=== PATIENT | male | born 1960 | race Caucasian/White ===

== ENCOUNTER 2020-01-01 00:22 | Emergency (ER) | payer MEDICARE, OTHER ==
[2020-01-01 00:30] VITALS: RESP 18
[2020-01-01] MEDS ORDERED: SODIUM CHLORIDE 0.9% 1,000 ML IV STA (00:41)
[2020-01-01] MEDS ORDERED: KETOROLAC 15 MG/ML 1 ML VIAL IVP STA (00:41)
[2020-01-01] MEDS ORDERED: HYDROmorphone 1 MG/ML 1 ML SYRINGE IVP STA (00:41)
[2020-01-01] MEDS ORDERED: ONDANSETRON 4 MG/2 ML VIAL IVP STA (00:41)
--- NOTE | 2020-01-01 00:46 | ED ---
Abdominal Pain HPI - General Chief Complaint: Abdominal Pain Stated Complaint: Back, shoulder pain Time Seen by Provider: 01/01/20 00:24 Source: patient Mode of arrival: EMS Limitations: no limitations - History of Present Illness Initial Comments: 59-year-old male patient presents to the emergency department today for evaluation of right flank pain. Patient states he has had pain for the last few hours. States the pain is severe and sharp. States he is feeling somewhat nauseous but denies any vomiting. Reports normal bowel movements. Denies any hematuria, dysuria, urinary frequency, urinary urgency. Denies previous abdominal surgeries. Denies any fever or chills. Patient denies any recent rash, cough, shortness of breath, chest pain, numbness, tingling, dizziness, weakness, hematuria, dysuria, urinary urgency, urinary frequency, headache, visual changes, or any other complaints. - Related Data Home Medications Medication Instructions Recorded Confirmed [place]-3 Acid Ethyl Esters [Lovaza] 2 gm PO BID 11/19/13 05/27/15 Oxymorphone HCl [Opana ER] 40 mg PO Q8H 11/19/13 05/27/15 amLODIPine BESYLATE [Norvasc] 5 mg PO DAILY 11/19/13 05/27/15 oxyCODONE-APAP 10-325MG [Percocet 1 tab PO HS 05/26/15 05/27/15 10-325 mg] Methylphenidate HCl [Ritalin] 20 mg PO TID 05/27/15 05/27/15 Previous Rx's Medication Instructions Recorded LORazepam [Ativan] 1 mg PO QID #30 tab 05/27/15 Metoprolol Succinate (ER) [Toprol 25 mg PO DAILY #30 tab 05/27/15 Xl] PARoxetine [Paxil] 10 mg PO DAILY #30 tab 05/27/15 Ibuprofen [Motrin] 600 mg PO Q8HR PRN #30 tab 01/01/20 Tamsulosin HCl [Flomax] 0.4 mg PO DAILY #7 cap 01/01/20 Allergies Allergy/AdvReac Type Severity Reaction Status Date / Time chlorpromazine HCl Allergy Unknown Verified 01/01/20 00:31 [From Thorazine] prochlorperazine edisylate Allergy Unknown Verified 01/01/20 00:31 [From Compazine] prochlorperazine maleate Allergy Unknown Verified 01/01/20 00:31 [From Compazine] promethazine Allergy Unknown Verified 01/01/20 00:31 Review of Systems ROS Statement: Those systems with pertinent positive or pertinent negative responses have been documented in the HPI. ROS Other: All systems not noted in ROS Statement are negative. Past Medical History Past Medical History: Hypertension Additional Past Medical History / Comment(s): back pain History of Any Multi-Drug Resistant Organisms: MRSA Date of last positivie culture/infection: 2003 MDRO Source:: unk Past Surgical History: Orthopedic Surgery Past Psychological History: Anxiety, Depression Past Alcohol Use History: None Reported Past Drug Use History: None Reported General Exam Limitations: no limitations General appearance: alert, in no apparent distress, other (This is a well- developed, well-nourished adult male patient in no acute distress. Vital signs upon presentation are temperature 98.2F, pulse 73, respirations 18, blood pressure 128/103, pulse ox 99% on room air.) Eye exam: Present: normal appearance, PERRL, EOMI. Absent: scleral icterus, conjunctival injection, periorbital swelling ENT exam: Present: normal exam, normal oropharynx, mucous membranes moist Respiratory exam: Present: normal lung sounds bilaterally. Absent: respiratory distress, wheezes, rales, rhonchi, stridor Cardiovascular Exam: Present: regular rate, normal rhythm, normal heart sounds. Absent: systolic murmur, diastolic murmur, rubs, gallop, clicks GI/Abdominal exam: Present: soft, tenderness (Right lower right upper quadrant tenderness), normal bowel sounds. Absent: distended, guarding, rebound, rigid Back exam: Present: normal inspection, CVA tenderness (R). Absent: CVA tenderness (L) Neurological exam: Present: alert, oriented X3, CN II-XII intact Psychiatric exam: Present: normal affect, normal mood Skin exam: Present: warm, dry, intact, normal color. Absent: rash Course Vital Signs 01/01/20 01/01/20 00:23 00:30 Temperature 98.0 F Pulse Rate 73 Respiratory 18 Rate Blood Pressure 128/103 157/94 O2 Sat by Pulse 99 Oximetry Medical Decision Making - Medical Decision Making 59-year-old male patient presents to the emergency department today for evaluation of right-sided flank pain right-sided abdominal pain. Physical examination did reveal right-sided abdominal tenderness and right CVA tenderness. He is afebrile. Labs reviewed and did reveal red blood cells in the urine. Did have elevated lactic at 2.1. There is no signs of infection in the urine. CT abdomen and pelvis was obtained and did reveal a 5 mm stone in the right occipital ureter with right-sided hydronephrosis. Patient was given IV fluids and pain medication. Upon reevaluation is resting comfortable in bed. He does wear a fentanyl patch at home. He'll be discharged with ibuprofen and Flomax. He is instructed to follow-up with the urologist for further evaluation as soon as possible. Return parameters were discussed in detail. He verbalizes understanding and agrees with this plan. - Lab Data Result diagrams: 01/01/20 00:42 01/01/20 00:42 Lab Results 01/01/20 01/01/20 01/01/20 Range/Units 00:42 00:42 00:42 WBC 12.9 H (3.8-10.6) k/uL RBC 4.96 (4.30-5.90) m/uL Hgb 14.3 (13.0-17.5) gm/dL Hct 43.6 (39.0-53.0) % MCV 88.1 (80.0-100.0) fL MCH 28.9 (25.0-35.0) pg MCHC 32.9 (31.0-37.0) g/dL RDW 13.1 (11.5-15.5) % Plt Count 305 (150-450) k/uL Neutrophils % 90 % Lymphocytes % 5 % Monocytes % 3 % Eosinophils % 1 % Basophils % 0 % Neutrophils # 11.6 H (1.3-7.7) k/uL Lymphocytes # 0.7 L (1.0-4.8) k/uL Monocytes # 0.4 (0-1.0) k/uL Eosinophils # 0.1 (0-0.7) k/uL Basophils # 0.0 (0-0.2) k/uL Sodium 138 (137-145) mmol/L Potassium 4.7 (3.5-5.1) mmol/L Chloride 103 (98-107) mmol/L Carbon Dioxide 23 (22-30) mmol/L Anion Gap 12 mmol/L BUN 16 (9-20) mg/dL Creatinine 1.00 (0.66-1.25) mg/dL Est GFR (CKD-EPI)AfAm >90 (>60 ml/min/1.73 sqM) Est GFR (CKD-EPI)NonAf 83 (>60 ml/min/1.73 sqM) Glucose 119 H (74-99) mg/dL Plasma Lactic Acid Chilo (0.7-2.0) mmol/L Calcium 9.9 (8.4-10.2) mg/dL Total Bilirubin 0.8 (0.2-1.3) mg/dL AST 36 (17-59) U/L ALT 16 (4-49) U/L Alkaline Phosphatase 75 (38-126) U/L Total Protein 7.7 (6.3-8.2) g/dL Albumin 4.6 (3.5-5.0) g/dL Amylase 49 (30-110) U/L Lipase 53 (23-300) U/L Urine Color Yellow Urine Appearance Clear (Clear) Urine pH 8.0 (5.0-8.0) Ur Specific [place] 1.005 (1.001-1.035) Urine Protein Negative (Negative) Urine Glucose (UA) Negative (Negative) Urine Ketones 1+ (Negative) Urine Blood Small H (Negative) Urine Nitrite Negative (Negative) Urine Bilirubin Negative (Negative) Urine Urobilinogen <2.0 (<2.0) mg/dL Ur Leukocyte Esterase Negative (Negative) Urine RBC 13 H (0-5) /hpf Urine WBC 1 (0-5) /hpf Urine Mucus Rare H (None) /hpf 01/01/20 Range/Units 00:42 WBC (3.8-10.6) k/uL RBC (4.30-5.90) m/uL Hgb (13.0-17.5) gm/dL Hct (39.0-53.0) % MCV (80.0-100.0) fL MCH (25.0-35.0) pg MCHC (31.0-37.0) g/dL RDW (11.5-15.5) % Plt Count (150-450) k/uL Neutrophils % % Lymphocytes % % Monocytes % % Eosinophils % % Basophils % % Neutrophils # (1.3-7.7) k/uL Lymphocytes # (1.0-4.8) k/uL Monocytes # (0-1.0) k/uL Eosinophils # (0-0.7) k/uL Basophils # (0-0.2) k/uL Sodium (137-145) mmol/L Potassium (3.5-5.1) mmol/L Chloride (98-107) mmol/L Carbon Dioxide (22-30) mmol/L Anion Gap mmol/L BUN (9-20) mg/dL Creatinine (0.66-1.25) mg/dL Est GFR (CKD-EPI)AfAm (>60 ml/min/1.73 sqM) Est GFR (CKD-EPI)NonAf (>60 ml/min/1.73 sqM) Glucose (74-99) mg/dL Plasma Lactic Acid [place] 2.1 H* (0.7-2.0) mmol/L Calcium (8.4-10.2) mg/dL Total Bilirubin (0.2-1.3) mg/dL AST (17-59) U/L ALT (4-49) U/L Alkaline Phosphatase (38-126) U/L Total Protein (6.3-8.2) g/dL Albumin (3.5-5.0) g/dL Amylase (30-110) U/L Lipase (23-300) U/L Urine Color Urine Appearance (Clear) Urine pH (5.0-8.0) Ur Specific [place] (1.001-1.035) Urine Protein (Negative) Urine Glucose (UA) (Negative) Urine Ketones (Negative) Urine Blood (Negative) Urine Nitrite (Negative) Urine Bilirubin (Negative) Urine Urobilinogen (<2.0) mg/dL Ur Leukocyte Esterase (Negative) Urine RBC (0-5) /hpf Urine WBC (0-5) /hpf Urine Mucus (None) /hpf - Radiology Data Radiology results: report reviewed, image reviewed CT abdomen and pelvis with out contrast was obtained. Report was reviewed in its entirety. Impression by Dr. Zamora shows obstructive calculus in the upper right ureter with hydronephrosis and proximal hydroureter. Bilateral small renal calculi. Normal appendix. Disposition Clinical Impression: Kidney stone on right side Disposition: HOME SELF-CARE Condition: Good Instructions (If sedation given, give patient instructions): Kidney Stones (ED) Additional Instructions: Increase fluids. Take medications as directed. Follow-up with urology for recheck in 1-2 days if necessary. Follow-up with your primary care physician for recheck in 1-2 days. Return to the emergency department immediately for any new, worsening, or concerning symptoms. Prescriptions: Tamsulosin HCl [Flomax] 0.4 mg PO DAILY #7 cap Ibuprofen [Motrin] 600 mg PO Q8HR PRN #30 tab PRN Reason: Pain Is patient prescribed a controlled substance at d/c from ED?: No Referrals: Andrés Givens DO [Primary Care Provider] - 1-2 days Rivas Blair MD [STAFF PHYSICIAN] - 1-2 days Time of Disposition: 01:49
[2020-01-01 00:52] LABS: Basophils % (A) 0 %; Eosinophils # (A) 0.1 k/uL (0-0.7); Eosinophils % (A) 1 %; HCT 43.6 % (39.0-53.0); HGB 14.3 gm/dL (13.0-17.5); Lymphocytes # (A) 0.7 k/uL (1.0-4.8); Lymphocytes % (A) 5 %; MCH 28.9 pg (25.0-35.0); MCHC 32.9 g/dL (31.0-37.0); MCV 88.1 fL (80.0-100.0); Mean Platelet Volume 7.6; Monocytes # (A) 0.4 k/uL (0-1.0); Monocytes % (A) 3 %; Neutrophils # (A) 11.6 k/uL (1.3-7.7); Neutrophils % (A) 90 %; Platelet Count 305 k/uL (150-450); RBC 4.96 m/uL (4.30-5.90); RDW 13.1 % (11.5-15.5); WBC 12.9 k/uL (3.8-10.6)
[2020-01-01 00:54] LABS: Color,Urine Yellow
[2020-01-01 00:55] LABS: Appearance,Urine Clear (Clear); Bilirubin,Urine Negative (Negative); Glucose,Urine (UA) Negative (Negative); Ketones,Urine 1+ (Negative); Protein,Urine Negative (Negative); Specific Gravity,Urine 1.005 (1.001-1.035)
[2020-01-01 00:56] LABS: Blood,Urine Small (Negative); Leukocyte Esterase,Urine Negative (Negative); Nitrite,Urine Negative (Negative); Urobilinogen,Urine <2.0 mg/dL (<2.0)
[2020-01-01 00:59] LABS: Mucus,Urine Rare /hpf; RBC,Urine 13 /hpf (0-5); WBC,Urine 1 /hpf (0-5)
[2020-01-01 01:01] LABS: African American GFR (CKD) >90 (>60 ml/min/1.73 sqM); Albumin 4.6 g/dL (3.5-5.0); Amylase 49 U/L (30-110); Anion Gap 12 mmol/L; Blood Urea Nitrogen 16 mg/dL (9-20); Calcium 9.9 mg/dL (8.4-10.2); Carbon Dioxide 23 mmol/L (22-30); Chloride 103 mmol/L (98-107); Glucose 119 mg/dL (74-99); Lipase 53 U/L (23-300); Non-African American GFR(CKD) 83 (>60 ml/min/1.73 sqM); Potassium 4.7 mmol/L (3.5-5.1); Sodium 138 mmol/L (137-145); Total Bilirubin 0.8 mg/dL (0.2-1.3); Total Protein 7.7 g/dL (6.3-8.2)
[2020-01-01 01:02] LABS: ALT 16 U/L (4-49); AST 36 U/L (17-59); Alkaline Phosphatase 75 U/L (38-126)
--- NOTE | 2020-01-01 01:32 | CT ---
EXAMINATION TYPE: CT abdomen pelvis wo con DATE OF EXAM: 01/01/2020 COMPARISON: None HISTORY: Right Flank Pain, R/O Stones CT DLP: 626.10 mGycm Automated exposure control for dose reduction was used. Images obtained from the diaphragm to the floor the pelvis with no contrast. There is mild subsegmental atelectasis at the lung bases. Heart size is normal. There is no pleural e ffusion. Liver spleen pancreas gallbladder stomach appear intact. Bile ducts are not dilated. There is no adre nal mass. Kidneys have normal size. There is right-sided hydronephrosis and hydroureter. There is 5 mm obstruct ing calculus in the proximal right ureter. This is at the L4-5 level. There is no retroperitoneal alexsandra nopathy. There is mild right-sided perinephric edema. There is 2 tiny calculi that measure 1 mm lower pole right kidney. There is 2 mm calculus upper pole left kidney. Bladder distends smoothly. There i s prostatic calcification. There is no inguinal hernia. There is no mesenteric edema. There is no ascites or free air. There is no bowel obstruction. Appendi x is medial and appears normal. Appendix best seen on coronal image 42. There is mild thoracolumbar levoscoliosis. There is no lumbar compression fracture. There is mild dis c space narrowing at L4-5. The bony pelvis is intact. The hip joints appear normal. IMPRESSION: Obstructing calculus in the upper right ureter with hydronephrosis and proximal hydroureter. Bilateral small renal calculi. Normal appendix.
[2020-01-01] MEDS ORDERED: TAMSULOSIN 0.4 MG CAP.ER.24H PO STA (01:35)
[2020-01-01 02:29] VITALS: BP 112/72; PULSE 76; TEMP 98.3
== END 2020-01-01 02:30 | disposition home or self-care (01) ==
LOC: EC 00:22
DX: N13.2 Hydronephrosis with renal and ureteral calculous obstruction (principal); F32.9 Major depressive disorder, single episode, unspecified; I10 Essential (primary) hypertension; Z79.899 Other long term (current) drug therapy; Z86.14 Personal history of Methicillin resistant Staphylococcus aureus infection; Z88.8 Allergy status to other drugs, medicaments and biological substances
CPT/HCPCS: 36415; 80053; 82150; 83605; 83690; 85025; 81001; 74176; 99284; 96374; 96375 ×2; 96361; J2405; J1170; J1885

== ENCOUNTER 2023-06-17 18:27 | Observation (INO) | payer MEDICARE, OTHER ==
[2023-06-17 19:14] LABS: Glucose,Whole Blood 90 mg/dL (70-110)
--- NOTE | 2023-06-17 19:14 | ED ---
General Adult HPI - General Chief complaint: Altered Mental Status Stated complaint: Overdose Time Seen by Provider: 06/17/23 18:30 Source: patient, EMS, RN notes reviewed, old records reviewed Mode of arrival: EMS Limitations: altered mental status - History of Present Illness Initial comments: This is a 62-year-old male who presents to the emergency department because he thinks the Narcan gave him adverse reaction. Patient states he has a fentanyl patch but denies any other opiate use. Patient states he took Narcan and then he started to feel terrible and he thinks the there is something wrong with the Narcan. Patient cannot tell us why he took the Narcan. Patient just states he does not feel good all over and he is not fully cooperative with answering questions. Patient denies any trauma. At this point in time he is twitching quite a bit and at times does not answer our questions and so we will do the workup and speak with him later - Related Data Home Medications Medication Instructions Recorded Confirmed [place]-3 Acid Ethyl Esters [Lovaza] 2 gm PO BID 11/19/13 05/27/15 Oxymorphone HCl [Opana ER] 40 mg PO Q8H 11/19/13 05/27/15 amLODIPine BESYLATE [Norvasc] 5 mg PO DAILY 11/19/13 05/27/15 oxyCODONE-APAP 10-325MG [Percocet 1 tab PO HS 05/26/15 05/27/15 10-325 mg] Methylphenidate HCl [Ritalin] 20 mg PO TID 05/27/15 05/27/15 Previous Rx's Medication Instructions Recorded LORazepam [Ativan] 1 mg PO QID #30 tab 05/27/15 Metoprolol Succinate (ER) [Toprol 25 mg PO DAILY #30 tab 05/27/15 Xl] PARoxetine [Paxil] 10 mg PO DAILY #30 tab 05/27/15 Ibuprofen [Motrin] 600 mg PO Q8HR PRN #30 tab 01/01/20 Tamsulosin HCl [Flomax] 0.4 mg PO DAILY #7 cap 01/01/20 Allergies Allergy/AdvReac Type Severity Reaction Status Date / Time chlorpromazine HCl Allergy Unknown Verified 01/01/20 00:31 [From Thorazine] prochlorperazine edisylate Allergy Unknown Verified 01/01/20 00:31 [From Compazine] prochlorperazine maleate Allergy Unknown Verified 01/01/20 00:31 [From Compazine] promethazine Allergy Unknown Verified 01/01/20 00:31 Review of Systems ROS Statement: Those systems with pertinent positive or pertinent negative responses have been documented in the HPI. ROS Other: All systems not noted in ROS Statement are negative. Past Medical History Past Medical History: Hypertension Additional Past Medical History / Comment(s): back pain History of Any Multi-Drug Resistant Organisms: MRSA Date of last positivie culture/infection: 2003 MDRO Source:: unk Past Surgical History: Orthopedic Surgery Past Psychological History: Anxiety, Depression Smoking Status: Former smoker Past Alcohol Use History: None Reported Past Drug Use History: None Reported General Exam - General Exam Comments Initial Comments: GENERAL: Patient is well-developed and well-nourished. Patient is nontoxic and well- hydrated and is in mild distress. Patient is acting as though he is withdrawing from opiates at this time ENT: Neck is soft and supple. No significant lymphadenopathy is noted. Oropharynx is clear. Moist mucous membranes. Neck has full range of motion without eliciting any pain. EYES: The sclera were anicteric and conjunctiva were pink and moist. Extraocular movements were intact and pupils were equal round and reactive to light. Eyelids were unremarkable. PULMONARY: Unlabored respirations. Good breath sounds bilaterally. No audible rales rhonchi or wheezing was noted. CARDIOVASCULAR: There is a regular rate and rhythm without any murmurs gallops or rubs. ABDOMEN: Soft and nontender with normal bowel sounds. SKIN: Skin is clear with no lesions or rashes and otherwise unremarkable. NEUROLOGIC: Patient is alert and oriented x 2. Cranial nerves II through XII are grossly intact. Motor and sensory are also intact. Normal speech, volume and content. Symmetrical smile. MUSCULOSKELETAL: Normal extremities with adequate strength and full range of motion. LYMPHATICS: No significant lymphadenopathy is noted PSYCHIATRIC: Unable to assess at this time Limitations: altered mental status Course Vital Signs 06/17/23 06/17/23 06/17/23 18:29 20:07 21:00 Temperature 98.5 F Pulse Rate 71 57 L 56 L Respiratory 18 18 18 Rate Blood Pressure 123/96 144/87 129/81 O2 Sat by Pulse 96 97 96 Oximetry Medical Decision Making - Medical Decision Making EKG is interpreted by myself. EKG shows a sinus rhythm at a rate of 66 bpm parable 162 QRS is 93 QT interval 375 QTc is 389. Patient is EKG shows no ST segment elevation or depression. Was pt. sent in by a medical professional or institution (JAMIN Pierre, CLINICAL RESEARCH PHYSICIAN, urgent care, hospital, or correction...) When possible be specific @ -No Did you speak to anyone other than the patient for history (EMS, parent, family, police, friend...)? What history was obtained from this source @ -EMS gave quite a bit of history because the patient was not cooperative initially Did you review nursing and triage notes (agree or disagree)? Why? @ -I reviewed and agree with nursing and triage notes Were old charts reviewed (outside hosp., previous admission, EMS record, old EKG, old radiological studies, urgent care reports/EKG's, correction records)? Report findings @ -I reviewed prior charts and prior lab work on this patient Differential Diagnosis (chest pain, altered mental status, abdominal pain women, abdominal pain men, vaginal bleeding, weakness, fever, dyspnea, syncope, headache, dizziness, GI bleed, back pain, seizure, CVA, palpatations, mental health, musculoskeletal)? @ -Differential Altered Mental Status: Hypoglycemia, DKA, hypercapnia, ETOH, overdose, CO poisoning, trauma, myxedema coma, HTN encephalopathy, infection, encephalitis, psychosis, intercranial hemorrhage, hepatic encephalopathy, meningitis, CVA, this is not meant to be an all-inclusive list EKG interpreted by me (3pts min.). @ -As above X-rays interpreted by me (1pt min.). @ -Chest x-ray shows no acute abnormality CT interpreted by me (1pt min.). @ -CT of the brain shows no acute abnormality U/S interpreted by me (1pt. min.). @ -None done What testing was considered but not performed or refused? (CT, X-rays, U/S, labs)? Why? @ -None What meds were considered but not given or refused? Why? @ -None Did you discuss the management of the patient with other professionals (p rofessionals i.e. JAMIN Pierre, CLINICAL RESEARCH PHYSICIAN, lab, RT, psych nurse, social media assistant, lifts and cranes inspector, teacher, environmental protection officer, director of casework)? Give summary @ -I spoke with [facility] and they agreed to admit the patient's Was smoking cessation discussed for >3mins.? @ -No Was critical care preformed (if so, how long)? @ -No Were there social determinants of health that impacted care today? How? (Homelessness, low income, unemployed, alcoholism, drug addiction, transportation, low edu. Level, literacy, decrease access to med. care, [facility], rehab)? @ -No Was there de-escalation of care discussed even if they declined (Discuss DNR or withdrawal of care, Hospice)? DNR status @ -No What co-morbidities impacted this encounter? (DM, HTN, Smoking, COPD, CAD, Cancer, CVA, ARF, Chemo, Hep., AIDS, mental health diagnosis, sleep apnea, morbid obesity)? @ -None Was patient admitted / discharged? Hospital course, mention meds given and route, prescriptions, significant lab abnormalities, going to OR and other pertinent info. @ -I spoke with Dr. Galeano from [facility] he agreed to admit the patient. Patient became more and more alert and oriented and able to answer questions CT of the brain was normal. Patient would never give us next placed as to why he took Narcan today. Undiagnosed new problem with uncertain prognosis? @ -No Drug Therapy requiring intensive monitoring for toxicity (Heparin, Nitro, Insulin, Cardizem)? @ -No Were any procedures done? @ -No Diagnosis/symptom? @ -Altered mental status, opioid withdrawal Acute, or Chronic, or Acute on Chronic? @ -Acute Uncomplicated (without systemic symptoms) or Complicated (systemic symptoms)? @ -Complicated Side effects of treatment? @ -No Exacerbation, Progression, or Severe Exacerbation? @ -No Poses a threat to life or bodily function? How? (Chest pain, [place], [place], pneumonia, PE, COPD, DKA, ARF, appy, cholecystitis, CVA, Diverticulitis, Homicidal, Suicidal, threat to staff... and all critical care pts) @ -No - Lab Data Result diagrams: 06/17/23 19:14 06/17/23 19:14 Lab Results 06/17/23 06/17/23 06/17/23 Range/Units 19:13 19:14 19:14 WBC 10.1 (3.8-10.6) k/uL RBC 4.11 L (4.30-5.90) m/uL Hgb 12.4 L (13.0-17.5) gm/dL Hct 37.0 L (39.0-53.0) % MCV 90.0 (80.0-100.0) fL MCH 30.1 (25.0-35.0) pg MCHC 33.4 (31.0-37.0) g/dL RDW 12.9 (11.5-15.5) % Plt Count 255 (150-450) k/uL MPV 7.6 Neutrophils % 82 % Lymphocytes % 12 % Monocytes % 4 % Eosinophils % 1 % Basophils % 0 % Neutrophils # 8.3 H (1.3-7.7) k/uL Lymphocytes # 1.2 (1.0-4.8) k/uL Monocytes # 0.4 (0-1.0) k/uL Eosinophils # 0.1 (0-0.7) k/uL Basophils # 0.0 (0-0.2) k/uL PT 9.9 L (10.0-12.5) sec INR 0.9 (<1.2) APTT 23.5 (22.0-30.0) sec Sodium (137-145) mmol/L Potassium (3.5-5.1) mmol/L Chloride (98-107) mmol/L Carbon Dioxide (22-30) mmol/L Anion Gap mmol/L BUN (9-20) mg/dL Creatinine (0.66-1.25) mg/dL Est GFR (CKD-EPI)AfAm (>60 ml/min/1.73 sqM) Est GFR (CKD-EPI)NonAf (>60 ml/min/1.73 sqM) Glucose (74-99) mg/dL POC Glucose (mg/dL) 90 (70-110) mg/dL POC Glu Diploma Pharmacy Technician ID Biland, Brianna Calcium (8.4-10.2) mg/dL Total Bilirubin (0.2-1.3) mg/dL AST (17-59) U/L ALT (4-49) U/L Alkaline Phosphatase (38-126) U/L Troponin I (0.000-0.034) ng/mL Total Protein (6.3-8.2) g/dL Albumin (3.5-5.0) g/dL Urine Opiates Screen (NotDetected) Ur Oxycodone Screen (NotDetected) Urine Methadone Screen (NotDetected) Ur Barbiturates Screen (NotDetected) U Tricyclic Antidepress (NotDetected) Ur Phencyclidine Scrn (NotDetected) Ur Amphetamines Screen (NotDetected) U Methamphetamines Scrn (NotDetected) U Benzodiazepines Scrn (NotDetected) Urine Cocaine Screen (NotDetected) U Marijuana (THC) Screen (NotDetected) 06/17/23 06/17/23 06/17/23 Range/Units 19:14 19:14 19:14 WBC (3.8-10.6) k/uL RBC (4.30-5.90) m/uL Hgb (13.0-17.5) gm/dL Hct (39.0-53.0) % MCV (80.0-100.0) fL MCH (25.0-35.0) pg MCHC (31.0-37.0) g/dL RDW (11.5-15.5) % Plt Count (150-450) k/uL MPV Neutrophils % % Lymphocytes % % Monocytes % % Eosinophils % % Basophils % % Neutrophils # (1.3-7.7) k/uL Lymphocytes # (1.0-4.8) k/uL Monocytes # (0-1.0) k/uL Eosinophils # (0-0.7) k/uL Basophils # (0-0.2) k/uL PT (10.0-12.5) sec INR (<1.2) APTT (22.0-30.0) sec Sodium 139 (137-145) mmol/L Potassium 3.8 (3.5-5.1) mmol/L Chloride 107 (98-107) mmol/L Carbon Dioxide 23 (22-30) mmol/L Anion Gap 9 mmol/L BUN 25 H (9-20) mg/dL Creatinine 0.81 (0.66-1.25) mg/dL Est GFR (CKD-EPI)AfAm >90 (>60 ml/min/1.73 sqM) Est GFR (CKD-EPI)NonAf >90 (>60 ml/min/1.73 sqM) Glucose 93 (74-99) mg/dL POC Glucose (mg/dL) (70-110) mg/dL POC Glu Diploma Pharmacy Technician ID Calcium 9.1 (8.4-10.2) mg/dL Total Bilirubin 0.3 (0.2-1.3) mg/dL AST 39 (17-59) U/L ALT 33 (4-49) U/L Alkaline Phosphatase 104 (38-126) U/L Troponin I <0.012 (0.000-0.034) ng/mL Total Protein 7.2 (6.3-8.2) g/dL Albumin 4.0 (3.5-5.0) g/dL Urine Opiates Screen Detected H (NotDetected) Ur Oxycodone Screen Detected H (NotDetected) Urine Methadone Screen Not Detected (NotDetected) Ur Barbiturates Screen Not Detected (NotDetected) U Tricyclic Antidepress Not Detected (NotDetected) Ur Phencyclidine Scrn Not Detected (NotDetected) Ur Amphetamines Screen Not Detected (NotDetected) U Methamphetamines Scrn Not Detected (NotDetected) U Benzodiazepines Scrn Not Detected (NotDetected) Urine Cocaine Screen Not Detected (NotDetected) U Marijuana (THC) Screen Not Detected (NotDetected) Disposition Clinical Impression: Opiate withdrawal, Altered mental status Disposition: ADMITTED IP TO THIS HOSP Referrals: Kapil Tello MD [Primary Care Provider] - 1-2 days Time of Disposition: 21:16
[2023-06-17 19:27] LABS: Basophils % (A) 0 %; Eosinophils # (A) 0.1 k/uL (0-0.7); Eosinophils % (A) 1 %; HGB 12.4 gm/dL (13.0-17.5); Lymphocytes # (A) 1.2 k/uL (1.0-4.8); Lymphocytes % (A) 12 %; MCH 30.1 pg (25.0-35.0); MCHC 33.4 g/dL (31.0-37.0); Mean Platelet Volume 7.6; Monocytes # (A) 0.4 k/uL (0-1.0); Monocytes % (A) 4 %; Neutrophils # (A) 8.3 k/uL (1.3-7.7); Neutrophils % (A) 82 %; Platelet Count 255 k/uL (150-450); RBC 4.11 m/uL (4.30-5.90); RDW 12.9 % (11.5-15.5); WBC 10.1 k/uL (3.8-10.6)
[2023-06-17 19:36] LABS: INR 0.9 (<1.2); Partial Thromboplastin Time 23.5 sec (22.0-30.0); Prothrombin Time 9.9 sec (10.0-12.5)
[2023-06-17 19:37] LABS: Amphetamine Screen,Urine Not Detected (NotDetected); Barbiturate Screen,Urine Not Detected (NotDetected); Benzodiazepines Screen,Urine Not Detected (NotDetected); Cocaine Screen,Urine Not Detected (NotDetected); Methadone Screen, Urine Not Detected (NotDetected); Opiate Screen,Urine Detected (NotDetected); Oxycodone Screen, Urine Detected (NotDetected); Phencyclidine Screen,Urine Not Detected (NotDetected); Tricyclic Antidepressant,Urine Not Detected (NotDetected); Urn Cannabinoid Scrn Not Detected (NotDetected)
[2023-06-17 19:38] LABS: ALT 33 U/L (4-49); AST 39 U/L (17-59); African American GFR (CKD) >90 (>60 ml/min/1.73 sqM); Alkaline Phosphatase 104 U/L (38-126); Anion Gap 9 mmol/L; Blood Urea Nitrogen 25 mg/dL (9-20); Calcium 9.1 mg/dL (8.4-10.2); Carbon Dioxide 23 mmol/L (22-30); Chloride 107 mmol/L (98-107); Glucose 93 mg/dL (74-99); Non-African American GFR(CKD) >90 (>60 ml/min/1.73 sqM); Potassium 3.8 mmol/L (3.5-5.1); Sodium 139 mmol/L (137-145); Total Bilirubin 0.3 mg/dL (0.2-1.3); Total Protein 7.2 g/dL (6.3-8.2)
[2023-06-17] MEDS: SODIUM CHLORIDE 0.9% 500 ML 500 ML IV ONE (19:54)
--- NOTE | 2023-06-17 20:32 | XR ---
EXAMINATION TYPE: XR chest 1V DATE OF EXAM: 06/17/2023 8:06 PM CLINICAL INDICATION:Male, 62 years old with history of altered mental status; [facility] COMPARISON: Chest radiographs from 05/26/2015 TECHNIQUE: XR chest 1V Frontal view of the chest. FINDINGS: Lungs/Pleura: Low lung volumes are present. There is no evidence of pleural effusion, focal consolida tion, or pneumothorax. Pulmonary vascularity: Unremarkable. Heart/mediastinum: Cardiomediastinal silhouette is prominent in size. Musculoskeletal: No acute osseous pathology. Other findings: None IMPRESSION: Low lung volumes with a generalized hazy appearance which could represent atelectasis versus pulmonar y edema.
--- NOTE | 2023-06-17 21:06 | CT ---
EXAMINATION TYPE: CT brain wo con CT DLP: 1128.4 mGycm, Automated exposure control for dose reduction was used. DATE OF EXAM: 06/17/2023 8:42 PM COMPARISON: None. CLINICAL INDICATION:Male, 62 years old with history of Altered mental status, AMS. Pt gave himself 4m g Narcan at 1630 today for unknown reasons. Pt is on a fentanyl patch daily. TECHNIQUE: Brain: Axial CT images of the brain were obtained with coronal and sagittal reformats created and rev iewed. Contrast used: None. Oral contrast used: None. FINDINGS: Brain: Extra-axial spaces: No abnormal extra-axial fluid collections. Ventricular system: Within normal limits Cerebral parenchyma: No acute intraparenchymal hemorrhage or mass effect. The jeong-white junction is well differentiated. Cerebellum: Unremarkable. Mass effect: No evidence of midline shift. Intracranial vasculature: unremarkable Soft tissues: Normal. Calvarium/osseous structures: No depressed skull fracture. Paranasal sinuses and mastoid air cells: Mild scattered paranasal sinus disease. Visualized orbits: Orbital contents are intact. IMPRESSION: No acute intracranial process.
[2023-06-17] MEDS: SODIUM CHLORIDE 0.9% 1,000 ML IV ONE (21:43)
--- NOTE | 2023-06-18 01:36 | P.HPIM ---
History of Present Illness H&P Date: 06/17/23 Patient is a 62-year-old male with a PMH of chronic pain and hypertension who presents to the emergency room with complaints of not feeling well and not quite himself. The patient reports that he was recently started on a Medrol Dosepak for bronchitis by his PCP and developed lightheadedness earlier today, and felt that it may be due to an interaction between his chronic pain medications including fentanyl patch and 3 times daily oxycodone with the steroids. He reports that the symptoms lasted only for a few minutes until he took his Narcan. He thereby proceeded to take his prescribed 4 mg nasal Narcan 1 time. He immediately developed diffuse body pain and felt unwell and decided to come to the emergency room. He reports feeling significantly better at the time of interview. Does report ongoing chronic lower back and bilateral shoulder pain for which he is requesting his home medications. Denied experiencing focal weakness, numbness, tingling, headache, visual disturbances, speech impairment, facial asymmetry, chest discomfort, shortness of breath, fever, chills, cough, nausea, vomiting, abdominal pain, diarrhea. In the emergency room a CT brain was unremarkable with chest x-ray showing a generalized hazy appearance suspicious for pulmonary edema versus atelectasis as read by me. EKG revealed sinus rhythm with APCs at 66 bpm as reviewed by me. Laboratory evaluation was remarkable for troponin less than 0.012, BUN 25, creatinine 0.81, hemoglobin 12.4. ED documentation reviewed and case discussed with ED provider. Review of systems: Pertinent positives and negatives as discussed in HPI, a complete review of systems was performed and all other systems are negative. Physical examination: Vital signs reviewed General: non toxic, no distress, appears at stated age, normal weight Derm: no unusual rashes/lesions, warm Head: atraumatic, normocephalic, symmetric Eyes: EOMI, no lid lag, anicteric sclera, pupils equal round reactive to light ENT: Nose and ears atraumatic Neck: No cervical lymphadenopathy, trachea midline, supple Mouth: no lip lesion, mucus membranes moist Cardiovascular: S1S2 reg, no murmur, positive dorsalis pedis pulse bilateral, no edema Lungs: CTA bilateral, no rhonchi, no rales, no accessory muscle use Abdominal: soft, nontender to palpation, no guarding Ext: muscle strength 5 out of 5 in all 4 extremities grossly, no gross muscle at rophy, no contractures, Neuro: CN II-XI grossly intact, no gross focal neuro deficits Psych: Alert, oriented, appropriate affect Assessment: Possible opiate overdose status post self Narcan use Chronic conditions: Hypertension Imaging: In the emergency room a CT brain was unremarkable with chest x-ray showing a generalized hazy appearance suspicious for pulmonary edema versus atelectasis as read by me. EKG revealed sinus rhythm with APCs at 66 bpm as reviewed by me. Data Review: Laboratory evaluation was remarkable for troponin less than 0.012, BUN 25, creatinine 0.81, hemoglobin 12.4. Plan: Resume patient's home opiates at a lower dose Continue with remaining home medications DVT prophylaxis: Lovenox subcu The patient is admitted with an anticipated less than 2 midnight stay for evaluation of opiate overdose CODE STATUS: Full Code Discussed with: Patient Anticipated discharge place: Home Past Medical History Past Medical History: Hypertension Additional Past Medical History / Comment(s): back pain History of Any Multi-Drug Resistant Organisms: MRSA Date of last positivie culture/infection: 2003 MDRO Source:: unk Past Surgical History: Orthopedic Surgery Additional Past Surgical History / Comment(s): blateral shoulder repair Past Anesthesia/Blood Transfusion Reactions: No Reported Reaction Past Psychological History: Anxiety, Depression Smoking Status: Former smoker Past Alcohol Use History: None Reported Past Drug Use History: None Reported Medications and Allergies Home Medications Medication Instructions Recorded Confirmed Type [place]-3 Acid Ethyl Esters [Lovaza] 1 gm PO DAILY 11/19/13 06/17/23 History Albuterol Inhaler [Ventolin Hfa 1 - 2 puff INHALATION RT-Q6H PRN 06/17/23 06/17/23 History Inhaler] Methylphenidate HCl [Ritalin] 20 mg PO BID 06/17/23 06/17/23 History Montelukast [Singulair] 10 mg PO DAILY 06/17/23 06/17/23 History Naloxone HCl [Narcan] 4 mg NASAL ONCE PRN 06/17/23 06/17/23 History amLODIPine [Norvasc] 2.5 mg PO DAILY 06/17/23 06/17/23 History fentaNYL 75MCG/HR PATCH [Duragesic 1 patch TRANSDERM Q72H 06/17/23 06/17/23 History 75MCG/HR] methylPREDNISolone Dose Pack See Taper PO DIRECTED 06/17/23 06/17/23 History [Medrol Dose Pack] oxyCODONE HCL [oxyCODONE HCL (IR)] 20 mg PO Q8H 06/17/23 06/17/23 History Allergies Allergy/AdvReac Type Severity Reaction Status Date / Time chlorpromazine HCl Allergy Unknown Verified 06/17/23 21:40 [From Thorazine] prochlorperazine edisylate Allergy Unknown Verified 06/17/23 21:40 [From Compazine] prochlorperazine maleate Allergy Unknown Verified 06/17/23 21:40 [From Compazine] promethazine Allergy Unknown Verified 06/17/23 21:40 Physical Exam Vitals: Vital Signs Temp Pulse Resp BP Pulse Ox 06/17/23 21:00 56 L 18 129/81 96 06/17/23 20:07 57 L 18 144/87 97 06/17/23 18:29 98.5 F 71 18 123/96 96 Intake and Output 06/17/23 06/17/23 06/18/23 14:59 22:59 06:59 Intake Total 0 Balance 0 Intake: Oral 0 Other: Weight 83.915 kg Results CBC & Chem 7: 06/17/23 19:14 06/17/23 19:14 Labs: Abnormal Lab Results - Last 24 Hours (Table) 06/17/23 06/17/23 06/17/23 Range/Units 19:14 19:14 19:14 RBC 4.11 L (4.30-5.90) m/uL Hgb 12.4 L (13.0-17.5) gm/dL Hct 37.0 L (39.0-53.0) % Neutrophils # 8.3 H (1.3-7.7) k/uL PT 9.9 L (10.0-12.5) sec BUN (9-20) mg/dL Urine Opiates Screen Detected H (NotDetected) Ur Oxycodone Screen Detected H (NotDetected) 06/17/23 Range/Units 19:14 RBC (4.30-5.90) m/uL Hgb (13.0-17.5) gm/dL Hct (39.0-53.0) % Neutrophils # (1.3-7.7) k/uL PT (10.0-12.5) sec BUN 25 H (9-20) mg/dL Urine Opiates Screen (NotDetected) Ur Oxycodone Screen (NotDetected) Thrombosis Risk Factor Assmnt - Choose All That Apply Each Factor Represents 1 point: Obesity (BMI >25) Each Risk Factor Represents 2 Points: Age 61-74 years Thrombosis Risk Factor Assessment Total Risk Factor Score: 3 Thrombosis Risk Factor Assessment Level: Moderate Risk
[2023-06-18] MEDS: MONTELUKAST 10 MG TAB PO SCH (09:25)
[2023-06-18] MEDS: amLODIPine 2.5 MG TAB PO SCH (09:25)
[2023-06-18] MEDS: METHYLPHENIDATE HCL 10 MG TAB PO SCH (09:25)
[2023-06-18] MEDS: ENOXAPARIN 40 MG/0.4 ML SYRINGE SQ SCH (09:26)
--- NOTE | 2023-06-18 12:33 | P.DS ---
Providers Date of admission: 06/17/23 21:16 Expected date of discharge: 06/18/23 Attending physician: Casimiro Galeano MD Primary care physician: [facility] Course: Patient is a 62-year-old male with a PMH of chronic pain and hypertension who presents to the emergency room with complaints of not feeling well and not quite himself. The patient reports that he was recently started on a Medrol Dosepak for bronchitis by his PCP and developed lightheadedness earlier today, and felt that it may be due to an interaction between his chronic pain medications including fentanyl patch and 3 times daily oxycodone with the steroids. He reports that the symptoms lasted only for a few minutes until he took his Narcan. He thereby proceeded to take his prescribed 4 mg nasal Narcan 1 time. He immediately developed diffuse body pain and felt unwell and decided to come to the emergency room. In the emergency room a CT brain was unremarkable with chest x-ray showing a generalized hazy appearance suspicious for pulmonary edema versus atelectasis as read by me. EKG revealed sinus rhythm with APCs at 66 bpm as reviewed by me. Laboratory evaluation was remarkable for troponin less than 0.012, BUN 25, creatinine 0.81, hemoglobin 12.4. 2/ Patient was seen and examined. He is complaining of chronic pain issues and requesting to restart his Fentanyl. Reports cough productive of yellow sputum over the past 6 weeks. Mentation back to baseline. Denies chest pain, SOB, dizziness, palpitations. Plans to discharge home today on Zpack for treatment of chronic bronchitis. General: Non toxic, no distress, appears at stated age Derm: Warm, dry Head: Atraumatic, normocephalic, symmetric Eyes: EOMI, no lid lag, anicteric sclera Mouth: No lip lesion, mucus membranes moist Cardiovascular: S1S2 reg, no murmur Lungs: CTA bilateral, no rhonchi, no rales, no accessory muscle use Abdominal: Soft, nontender to palpation, no guarding, no appreciable organomegaly Ext: No gross muscle atrophy, no edema, no contractures Neuro: no focal neuro deficits Psych: Alert, oriented, appropriate affect Discharge Diagnosis: Opiate withdrawal status post self Narcan use Chronic bronchitis Normocytic anemia Elevated BUN Chronic conditions: Hypertension This complex discharge took 35 minutes to complete. Patient Condition at Discharge: Stable Plan - Discharge Summary Discharge Rx Participant: No New Discharge Prescriptions: New Azithromycin [Zithromax Z Pack] 1 tab PO DIRECTED #6 tab Continue [place]-3 Acid Ethyl Esters [Lovaza] 1 gm PO DAILY amLODIPine [Norvasc] 2.5 mg PO DAILY fentaNYL 75MCG/HR PATCH [Duragesic 75MCG/HR] 1 patch TRANSDERM Q72H Naloxone HCl [Narcan] 4 mg NASAL ONCE PRN PRN Reason: O.D. Albuterol Inhaler [Ventolin Hfa Inhaler] 1 - 2 puff INHALATION RT-Q6H PRN PRN Reason: Shortness Of Breath Methylphenidate HCl [Ritalin] 20 mg PO BID methylPREDNISolone Dose Pack [Medrol Dose Pack] See Taper PO DIRECTED Montelukast [Singulair] 10 mg PO DAILY oxyCODONE HCL [oxyCODONE HCL (IR)] 20 mg PO Q8H Discharge Medication List [place]-3 Acid Ethyl Esters [Lovaza] 1 gm PO DAILY 11/19/13 [History] Albuterol Inhaler [Ventolin Hfa Inhaler] 1 - 2 puff INHALATION RT-Q6H PRN 06/17/23 [History] Methylphenidate HCl [Ritalin] 20 mg PO BID 06/17/23 [History] Montelukast [Singulair] 10 mg PO DAILY 06/17/23 [History] Naloxone HCl [Narcan] 4 mg NASAL ONCE PRN 06/17/23 [History] amLODIPine [Norvasc] 2.5 mg PO DAILY 06/17/23 [History] fentaNYL 75MCG/HR PATCH [Duragesic 75MCG/HR] 1 patch TRANSDERM Q72H 06/17/23 [History] methylPREDNISolone Dose Pack [Medrol Dose Pack] See Taper PO DIRECTED 06/17/23 [History] oxyCODONE HCL [oxyCODONE HCL (IR)] 20 mg PO Q8H 06/17/23 [History] Azithromycin [Zithromax Z Pack] 1 tab PO DIRECTED #6 tab 06/18/23 [Rx] Follow up Appointment(s)/Referral(s): Kapil Tello MD [Primary Care Provider] - 1 Week (Please call office for your appointment.) Discharge Disposition: HOME SELF-CARE
[2023-06-18 13:11] VITALS: BP 114/62; PULSE 88; RESP 18; TEMP 97.7
== END 2023-06-18 14:22 | disposition home or self-care (01) ==
LOC: EC 18:27 → INTOOBSV 21:16 → 4SSUR 21:16 → UNDODISIN 06-18 14:22
PROVIDERS: ADMIT Internal Medicine; ATTEND Internal Medicine
DX: F11.23 Opioid dependence with withdrawal (principal); J42 Unspecified chronic bronchitis; R79.89 Other specified abnormal findings of blood chemistry; D64.9 Anemia, unspecified; I10 Essential (primary) hypertension; G89.29 Other chronic pain; M25.511 Pain in right shoulder; M25.512 Pain in left shoulder; M54.50 Low back pain, unspecified; Z87.891 Personal history of nicotine dependence; Z86.14 Personal history of Methicillin resistant Staphylococcus aureus infection; Z79.899 Other long term (current) drug therapy; Z88.8 Allergy status to other drugs, medicaments and biological substances
CPT/HCPCS: 96361 ×3; 96360; 99285; 36415; 94760; 93005; 80053; 84484; 85025; 85610; 85730; 80306; 71045; 70450; G0378 ×2

== ENCOUNTER → 2023-09-10 | Outpatient (CLI) | payer MEDICARE, OTHER ==
--- NOTE | 2023-09-10 11:43 | XR ---
EXAMINATION TYPE: XR chest 2V DATE OF EXAM: 09/10/2023 COMPARISON: 07/07/2023 HISTORY: Shortness of breath TECHNIQUE: Frontal and lateral views of the chest are obtained. FINDINGS: Scattered senescent parenchymal changes noted. Hyperinflation compatible with COPD. No evidence for infiltrate. No evidence for atelectasis. Heart size is stable. Mediastinal structures are stable and grossly unremarkable. No evidence for hilar prominence. Degenerative changes dorsal spine. IMPRESSION: 1. No evidence for acute pulmonary disease.
== END | disposition home or self-care (01) ==
LOC: RADXRWHC 09:33
PROVIDERS: ATTEND Family Medicine
DX: J44.9 Chronic obstructive pulmonary disease, unspecified (principal)
CPT/HCPCS: 71046

== ENCOUNTER → 2023-11-12 | Outpatient (CLI) | payer MEDICARE, OTHER ==
--- NOTE | 2023-11-12 12:52 | XR ---
EXAMINATION TYPE: XR cervical spine comp DATE OF EXAM: 11/12/2023 11:06 AM CLINICAL INDICATION:Male, 63 years old with history of M54.12 RADICULOPATHY, CERVICAL REGION; [facility] COMPARISON: None TECHNIQUE: The cervical spine was imaged in frontal, lateral, odontoid and bilateral oblique. FINDINGS: The osseous structures show normal alignment without evidence of an acute fracture. There are osteoph ytes noted throughout the cervical spine on the anterior and lateral aspects of the vertebral bodies. The intervertebral disk spaces are narrowed at multiple levels. Pedicles are intact. Soft tissues a re within normal limits. The odontoid appears intact. IMPRESSION: 1. No fracture or dislocation. 2. Moderate degenerative disc disease is changes of the cervical spine.
--- NOTE | 2023-11-12 12:55 | XR ---
EXAMINATION TYPE: XR lumbosacral spine min 4V DATE OF EXAM: 11/12/2023 11:06 AM CLINICAL INDICATION:Male, 63 years old with history of M54.12 RADICULOPATHY, CERVICAL REGION; [facility] COMPARISON: None TECHNIQUE: XR lumbosacral spine min 4V - Frontal, lateral , bilateral oblique and coned in L5-S1 late ral views of the spine. FINDINGS: No evidence of any acute osseous pathology. No evidence of loss of vertebral body height i s seen. There is normal alignment of the lumbar vertebral bodies. Moderate scattered disc space narro wing. Multilevel marginal osteophyte formation throughout the visualized spine. There is facet joint arthropathy throughout the spine. Scattered at least moderate L4-L5 L5-S1 neural foraminal stenosis. IMPRESSION: 1. No acute fracture. 2. Moderate multilevel disc degeneration.
--- NOTE | 2023-11-12 13:00 | XR ---
EXAMINATION TYPE: XR scapula bilateral DATE OF EXAM: 11/12/2023 11:06 AM CLINICAL INDICATION:Male, 63 years old with history of M54.12 RADICULOPATHY, CERVICAL REGION; [facility] COMPARISON: 07/31/2015 TECHNIQUE: XR scapula bilateral; examined in AP, internally rotated and scapular Y projections. FINDINGS: No evidence of acute osseous pathology, joint dislocation, or soft tissue swelling. The remaining po rtions of the visualized chest are unremarkable. Degeneration changes of the acromion, distal clavic le with osteophyte formation. There is osteophyte formation of the glenoid and humeral head. There is joint space narrowing of glenohumeral joint. IMPRESSION: 1. No acute osseous pathology. 2. 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
== END | disposition home or self-care (01) ==
LOC: RADXRMAIN 10:05
PROVIDERS: ATTEND Nurse Practitioner Family
DX: M50.30 Other cervical disc degeneration, unspecified cervical region (principal); M19.012 Primary osteoarthritis, left shoulder; M19.011 Primary osteoarthritis, right shoulder
CPT/HCPCS: 72050; 72110